=== PATIENT | male | born 1950 | race Caucasian/White ===

== ENCOUNTER → 2022-10-13 09:18 | Outpatient (CLI) | payer MEDICARE, SELFPAY ==
--- NOTE | ~2022-10-13 | MR_ITS ---
EXAMINATION: MR lumbar spine wo con DATE: 10/13/2022 09:55 INDICATION: Lumbar radiculopathy TECHNIQUE: Magnetic resonance imaging (MRI) of the lumbar spine was performed without intravenous con trast. Sequences included sagittal T2-weighted FSE, sagittal T2-weighted FS FSE, sagittal T1-weighted FSE, and axial T2-weighted FSE. COMPARISON: None FINDINGS: 17 degree lumbar dextroscoliosis. Sagittal alignment is normal. Vertebral body heights are normal. Mi ld disc height loss at T11-T12 and at the disc spaces between L1 through S1. Mild fibrovascular degen erative endplate changes at L5-S1. Marrow signal is otherwise normal. The conus medullaris terminates at L1. There is normal signal in the caudal spinal cord. Paravertebral soft tissues are unremarkable . The following disc levels are specifically discussed: T12-L1: The disc does not extend beyond the endplate margin. There is mild bilateral facet joint oste oarthritis. There is no neural foraminal stenosis. There is no central canal stenosis. L1-L2: Small bilateral foraminal zone disc protrusions. There is mild bilateral facet joint osteoarth ritis. There is mild bilateral neural foraminal stenosis. There is no central canal stenosis. L2-L3: Mild bilateral foraminal zone disc protrusions with annular fissure on the right. There is hyp ertrophy of the ligamentum flavum. There is mild to moderate bilateral facet joint osteoarthritis. Th ere is mild bilateral, left greater than right neural foraminal stenosis. There is mild central canal stenosis. L3-L4: Disc is mildly bulging. There is severe bilateral facet joint osteoarthritis with prominent hy pertrophic changes on the left. There is mild right and moderate left neural foraminal stenosis. Ther e is suggestion of possible prior left hemilaminotomy. There is mild central canal stenosis. L4-L5: Prominent diffuse disc bulge with annular fissures at the bilateral foraminal zones. There is hypertrophy of the ligamentum flavum. There is severe bilateral facet joint osteoarthritis. There is bilateral, left greater than right neural foraminal stenosis. There is moderate central canal stenos is. L5-S1: Disc is mildly bulging. There is severe bilateral facet joint osteoarthritis. There is moderat e left and moderate to severe right neural foraminal stenosis. There is no central canal stenosis. IMPRESSION: 1. 17 degrees lumbar dextroscoliosis with mild lower lumbar predominant spondylosis most notable for moderate central canal stenosis at L4-L5 and moderate to severe neural foraminal stenosis on the righ t at L5-S1. Reviewed, dictated and finalized at location A. IMPRESSION: 1. 17 degrees lumbar dextroscoliosis with mild lower lumbar predominant spondyl osis most notable for moderate central canal stenosis at L4-L5 and moderate to severe neural foraminal stenosis on the right at L5-S1.
== END ==
PROVIDERS: PCP Internal Medicine; Visit Provider Internal Medicine
DX: M47.26 Other spondylosis with radiculopathy, lumbar region (principal)
CPT/HCPCS: 72148

== ENCOUNTER 2024-05-18 00:54 | Day surgery (SDC) | payer MEDICARE, SELFPAY ==
[2024-05-10 14:04] VITALS: BMI 22.8
--- OUTSIDE RECORDS SUMMARY | 2024-05-18 00:57 | XMS_ITS | Referral Summary ---
Author Organization [facility] carol Address [address] [place] [address] Care Team Providers Care Hearing Officer Name Role Phone Job Melendez MD Primary Care Provider + Allergies Active Allergy Reactions Criticality Noted Date Comments Atorvastatin Mental status changes Low Memory recall issues Erythromycin Other (See comments) Reaction: Liver toxicity, , , Meperidine Nausea & Vomiting Low Sulfa (Sulfonamide Antibiotics) Sulfanilamide Hives,Rash Reaction: Hives, Skin Rash, Medications pen needle, diabetic (NOVOTWIST) 32 gauge x 1/5 needle use as directed 100 3 3 Active lancets (ONETOUCH DELICA LANCETS) 33 gauge misc test once daily 100 each 3 4 Active pravastatin (PRAVACHOL) 80 mg tablet take 1 tablet by oral route every day 90 3 4 Active Ca-D3-mag hh-pdch-rdo-justus -bor 600 mg calcium- 800 unit-50 mg tablet one by oral route twice a day 0 0 7 Active lancets misc Test sugars daily and as directed For use with AccuChek Compact Plus 100 1 0 Active omega 1-lcj-pii-fish oil 1,200 (144-216) mg capsule Take 1 capsule by mouth daily. Active TRULICITY 1.5 mg/0.5 mL pen injector INJECT 0.5ML SUBCUTABEOUS ONCE EVERY WEEK IN THE ABDOMEN, THIGH, OR UPPER ARM ROTATING INJECTION SITES 6 mL 11 7 Active Additional Information Patient taking differently: Takes on Wednesday evening, Reported on 01/18/2022 glimepiride (AMARYL) 4 mg tablet Take 1 tablet (4 mg total) by mouth daily before breakfast. 90 tablet 3 7 Active pregabalin (LYRICA) 100 mg capsule Take 1 capsule (100 mg total) by mouth 2 (two) times a day. 180 capsule 7 Active amitriptyline (ELAVIL) 25 mg tablet TAKE 1 TABLET BY MOUTH 1 TIME EVERY DAY 90 tablet 3 7 Active ONETOUCH ULTRA TEST strip TEST ONCE DAILY 100 each 7 Active amlodipine-olmes sacha (SHELIA) 10-20 mg per tablet Take 1 tablet by mouth daily Active aspirin 81 mg enteric coated tablet Take 81 mg by mouth nightly Active triamcinolone (NASACORT) 55 mcg nasal inhaler Administer 1 spray into each nostril 2 (two) times a day Active psyllium husk-calcium 1-60 gram-mg capsule Take 1 capsule by mouth as needed Active dapagliflozin (FARXIGA) 10 mg tablet Take 10 mg by mouth daily Active lidocaine (LMX) 4 % cream Apply 2.5 g (1 application total) topically 4 (four) times a day for 3 days 30 g 2 Active linaCLOtide (LINZESS) 145 mcg capsuleIndicatio ns:chronic idiopathic constipation Take 1 capsule (145 mcg total) by mouth daily before breakfast 30 capsule 3 2 Active polyethylene glycol (MIRALAX) 17 gram packetIndication s:constipation Take 2 packets (34 g total) by mouth daily 60 packet 2 2 Active levETIRAcetam (KEPPRA) 750 mg tablet Take 1 tablet (750 mg total) by mouth 2 (two) times a day 60 tablet 11 3 Active triamcinolone (KENALOG) 0.1 % creamIndications :skin rash Apply topically 2 (two) times a day Apply to itchy areas on trunk and legs. Do not apply to face 30 g 3 4 Active Active Problems Problem Noted Date Diagnosed Date Constipation, unspecified constipation type 01/08 Urinary retention 01/17/2022 Overview (01/19/2022): Added automatically from request for surgery [id number] Basal cell carcinoma (BCC) of forehead 8 Healthcare maintenance 09/01/2016 Medication management 09/01/2016 Right retinal detachment 09/01/2016 Cervical myelopathy with cervical radiculopathy 09/01/2016 Viral screening status 05/04/2016 Overview (07/03/2016): Need for hepatitis C screening test Chronic kidney disease 11/14/2013 Focal seizure 11/14/2013 Quadriplegia 08/22/2013 Overview (05/15/2016): QUADRIPLEGIA, UNSPECIFD Gastroesophageal reflux disease 06/24/2013 Overview (05/13/2016): ESOPHAGEAL REFLUX Benign hypertension 06/24/2013 Overview (05/13/2016): BENIGN HYPERTENSION Arteriosclerotic vascular disease 06/24/2013 Overview (05/14/2016): ASCVD Type 2 diabetes mellitus 06/24/2013 Overview (05/14/2016): DMII WO CMP NT ST UNCNTR Depression 06/24/2013 Overview (05/15/2016): DEPRESSIVE DISORDER NEC Benign neoplasm of large intestine 06/24/2013 Overview (05/15/2016): BENIGN NEOPLASM LG BOWEL Multiple-type hyperlipidemia 06/24/2013 Overview (05/15/2016): MIXED HYPERLIPIDEMIA Vitamin D deficiency 03/09/2012 Overview (05/13/2016): VITAMIN D DEFICIENCY NOS Sciatica 05/07/2011 Overview (05/13/2016): Sciatica of left side Resolved Problems Problem Noted Date Diagnosed Date Resolved Date Rhus dermatitis 09/15/2016 09/15/2016 Assessment & Plan (09/15/2016 10:20 AM CDT): Recommended tapering corticosteroids with prednisone for 12 days Patient was certainly advised he can continue to apply cortisone cream an kknv-oyx-vaioebd antihistamine, such as Benadryl, or Zyrtec during the day for alleviation of pruritus. Certainly if symptoms persist or worsen to follow up in our office regarding this condition Immunizations Immunization Administration Dates Next Due Hep A / Hep B 09/30/2015 Influenza, Quadrivalent, Spl it, Preservative Free, Intradermal 01/24/2015 Influenza, Split 12/19/2012, 2,01/15/2011,01/06 Influenza, Trivalent, High D ose, Split, Preservative Free, Intramuscular 10/14/2015 Influenza, Trivalent, IM (MDV) 11/29/2008,2007 Influenza, Trivalent, Recomb inant, Egg Free, Preservative Free, Antibiotic Free, IM (FLUBLOK) 12/08/2013 Pneumococcal Conjugate PCV 13 04/25/2015 Pneumococcal Polysaccharide PPV23 03/21/2012 Tdap 03/21/2012 ZOSTER LIVE 08/14/2011 Social History Tobacco Use Types Packs/Day Years Used Date Smoking Tobacco: Former Smokeless Tobacco: Never Tobacco Cessation:Counseling Given: No Alcohol Use Standard Drinks/Week Comments Yes 0 (1 standard drink = 0.6 oz pur e alcohol) AUDIT-C Answer Date Recorded Q1: How often do you have a drink containing alc ohol? Monthly or less 01/18/2022 Q2: How many drinks containi ng alcohol do you have on a typical day when you are drinking? 1 or 2 01/18/2022 Q3: How often do you have si x or more drinks on one occasion? Never 01/18/2022 PHQ-2 Answer Date Recorded PHQ-2 Total Score (If total score is 3 or more points, staff should administer the PHQ-9) 0 01/18/2022 Personal Safety Answer Date Recorded Have you ever been in or are you currently in a harmful physical or emotional relationship or is someone making you feel afraid or unsafe? Denies 10/23/2022 Sex and Gender Information Value Date Recorded Sex Assigned at Not on file Legal Sex Male 11:12 AM [facility]EL CAMER[facility] Gender Identity Male 09/25/2022 6:40 PM CDT Sexual Orientation Straight 09/25/2022 6: 40 PM CDT Last Filed Vital Signs Vital Sign Reading Time Taken Comments Blood Pressure 100/64 10/23/2022 9:00 PM CDT Pulse 72 10/23/2022 9:00 PM CDT Temperature 36.9 C (98.5 F) 10/23/2022 5:56 PM CDT Respiratory Rate 16 10/23/2022 9:00 PM CDT Oxygen Saturation 98% 10/23/2022 9:00 PM CDT Inhaled Oxygen Concentration - - Weight 90.7 kg (200 lb) 10/23/2022 5:56 PM CDT Height 180.3 cm (5' 11 ) 10/23/2022 5:56 PM CDT Body Mass Index 27.89 10/23/2022 5:56 PM CDT Plan of Treatment Not on file Procedures Procedure Name Priority Date/Time Associated Diagnosis Comments EGFR Routine 09/27/2023 7:10 AM CDT HEMOGLOBIN A1C Routine 09/27/2023 7:10 AM CDT LIPID PANEL Routine 09/27/2023 7:10 AM CDT ALBUMIN CREATININE RATIO, URINE Routine 09/27/2023 7:10 AM CDT PSA SCREEN Routine 08/27/2022 7:33 AM CDT FLEXIBLE SIGMOIDOSCOPY 2:[address] ABDOMEN PELVIS W CONTRAST ED 01/17/2022 10:52 PM [facility] RE[facility] CAMER[facility] COLONOSCOPY 08/18/2017 8:15 AM CDT DIABETES FOOT EXAM Routine 09/15/2016 DIABETES EYE EXAM Routine 07/17/2016 from Last 3 Months or Most Recently Relevant to Health Maintenance Results * (ABNORMAL) eGFR (09/27/2023 7:10 AM CDT) eGFR 58(L) >=60 mL/min/1. 73 m2 Comment: Interpretive Data Reference Interval Normal >/= 90 mL/min/1.73m2 Mildly decreased* 60 - 89 mL/min/1.73m2 Mildly to moderately decreased 45 - 59 mL/min/1.73m2 Moderately to severely decreased 30 - 44 mL/min/1.73m2 Severely decreased 15 - 29 mL/min/1.73m2 Kidney Failure < 15 mL/min/1.73m2 *Relative to young adult level Estimated glomerular filtration rate is determined by the 2020 CKD-EPI equation recommended by the National Kidney Foundation (A Unifying Approach to GFR Estimation: Recommendations of the NKF-ASK Task Force on Reassessing the Inclusion of Race in Diagnosing Kidney Disease, JASN 2020). The CKD-EPI equation should not be used for patients with unstable renal function and has not been validated in children and those over 70. Current interpretive data was last reviewed 2020. Blood 09/27/2023 7:10 AM CDT 09/27/2023 8:10 AM CDT us Job Melendez MD LAB BLOOD ORDERABLES Fin al Result [facility] 1 [facility] Department of Laboratories [place], [place] [id number] * Albumin Creatinine Ratio, Urine (09/27/2023 7:10 AM CDT) Albumin Ur 22.0 mg/L Comment: Interpretive Data No reference range established. Current interpretive data was last revised 2018. Testing performed by: [address] [place] [address] Creatinine Ur 139.1 mg/dL [facility] Comment: Interpretive Data No reference range established. Current interpretive data was last revised 2018. Testing performed by: [facility], [address] [place] [address]., [id number] Albumin Creatinine Ratio, Ur 16 1 - 29 mg/g [facility] Comment:Testing performed by : [facility], [address] [place] [address], [place]., [address] Urine 09/27/2023 7:10 AM CDT 09/27/2023 9:05 AM CDT Job Melendez MD LAB URINE ORDERABLES Fin al Result Performing Organization Address [facility] de Phone Number [facility] [address] [place] [address] * (ABNORMAL) Hemoglobin A1c (09/27/2023 7:10 AM CDT) Hgb A1C 6.1(H) 4.0 - 5.6 % Estimated Average Glucose 128 mg/dL [facility] Comment: The ADA recommends reporting an estimated Average Glucose (eAG) with all Hemoglobin A1c results using the equation derived from a study of 507 normal and diabetic adults. Minority populations were underrepresented and children were not included. (Diabetes Care 31:6300-5967, 2008). The eAG is not equivalent to a fasting glucose. Blood 09/27/2023 7:10 AM CDT 09/27/2023 8:10 AM CDT Job Melendez MD LAB BLOOD ORDERABLES Fin al Result Performing Organization Address [facility] de Phone Number [facility] [address] [place] [id number] * (ABNORMAL) Lipid panel (09/27/2023 7:10 AM CDT) Cholesterol 107 30 - 199 mg/dL Comment: Interpretive Data Ages < or = 19 years Acceptable: <170 mg/dL Borderline high: 170-199 mg/dL High: >or= 200 mg/dL Ages > or = 20 years Desirable: <200 mg/dL Borderline high: 200-239 mg/dL High: >or= 240 mg/dL Literature References: 1. Expert Panel on Integrated Guidelines for Cardiovascular Health and Risk Reduction in Children and Adolescents. Pediatrics 2011;128:S213 2. NCEP Expert Panel. Circulation 2004;110:227 Current Interpretive Data was last revised on 2017. Triglycerides 115 <=149 mg/dL [facility]) Comment: Interpretive Data Ages < or = 9 years Acceptable: <75 mg/dL Borderline high: 75-99 mg/dL High: >or= 100 mg/dL Ages 10 to 20 years Acceptable: <90 mg/dL Borderline high: 90-129 mg/dL High: >or= 130 mg/dL Ages > or = 20 years Desirable: <150 mg/dL Borderline high: 150-199 mg/dL High: 200-499 mg/dL Very high: >or= 499 mg/dL Literature References: 1. Expert Panel on Integrated Guidelines for Cardiovascular Health and Risk Reduction in Children and Adolescents. Pediatrics 2011;128:S213 2. NCEP Expert Panel. Circulation 2004;110:227 Current Interpretive Data was last revised on 2017. HDL 38(L) >=40 mg/dL [facility]) Comment: Interpretive Data Ages < or = 19 years Acceptable: >45 mg/dL Borderline low: 40-45 mg/dL Low: <40 mg/dL Ages > or = 20 years Desirable: >or= 60 mg/dL Low: <40 mg/dL Literature References: 1. Expert Panel on Integrated Guidelines for Cardiovascular Health and Risk Reduction in Children and Adolescents. Pediatrics 2011;128:S213 2. NCEP Expert Panel. Circulation 2004;110:227 Current Interpretive Data was last revised on 2017. LDL, calculated 46 <=129 mg/dL [facility]) Comment: Interpretive Data Ages < or = 19 years Acceptable: <110 mg/dL Borderline high: 110-129 mg/dL High: >or= 130 mg/dL Ages > or = 20 years Optimal: <100 mg/dL Near optimal: 100-129 mg/dL Borderline high: 130-159 mg/dL High: >160 mg/dL Literature References: 1. Expert Panel on Integrated Guidelines for Cardiovascular Health and Risk Reduction in Children and Adolescents. Pediatrics 2011;128:S213 2. NCEP Expert Panel. Circulation 2003;110:227 Current Interpretive Data was last revised on 2017. Non-HDL Cholesterol 69 mg/dL [facility] Comment: Interpretive Data Ages < or = 19 years Acceptable: <120 mg/dL Borderline high: 120-144 mg/dL High: >145 mg/dL Ages > or = 20 years When triglycerides are >200 mg/dL, Non-HDL cholesterol is a secondary target of therapy with treatment goals that are 30 mg/dL greater than the LDL cholesterol target. Literature References: 1. Expert Panel on Integrated Guidelines for Cardiovascular Health and Risk Reduction in Children and Adolescents. Pediatrics 2011;128:S213 2. NCEP Expert Panel. Circulation 2004;110:227 Current Interpretive Data was last revised on 2017. Chol/HDL ratio 3 [facility]) Blood 09/27/2023 7:10 AM CDT 09/27/2023 8:10 AM CDT us Job Melendez MD LAB BLOOD ORDERABLES Fin al Result Performing Organization Address [facility] Co de Phone Number [facility] 1 [facility] [place] [address] * PSA screen (08/27/2022 7:33 AM CDT) PSA-Total 0.97 <=6.20 ng/mL [facility]) Comment: Interpretive Data AGE SEX REFERENCE INTERVAL 0 minutes-150 years Female None 0 minutes-49 years Male None 50-59 years Male 0-3.90 60-69 years Male 0-5.40 70-79 years Male 0-6.20 80-150 years Male 0-6.20 The [employer] PSA Total assay procedure was used. Results from different manufacturers or methods may not be comparable. Serial testing should be performed using the same method. Current interpretive data last revised 21. Blood 08/27/2022 7:33 AM CDT 08/27/2022 8:33 AM CDT us Job Melendez MD LAB BLOOD ORDERABLES Fin al Result Performing Organization Address [facility] Co de Phone Number [facility] 1 [facility] [place] [address] * FLEXIBLE SIGMOIDOSCOPY (01/21/2022 2:26 PM NEWS REEL CAMER[facility]) Anatomical Region Laterality Modality Other Narrative Procedure Note Arabella Malave MD - 01/21/2022 2:26 PM CST [facility] Patient Name: Zack Tim Procedure Date: 01/21/2022 2:26 PM Date of : 1950 Admit Type: Inpatient Age: 71 Gender: Male Attending MD: Arabella Malave M.D. Room: [facility] ENDOSCOPY ROOM 1 Note Status: Finalized Patient Profile: This is a 71 year old male. Patient complains of rectal pain and constipation. He has fecal disimpaction couple days ago but continued to have symptoms and constipation Procedure: Flexible Sigmoidoscopy Indications: Rectal pain, Fecal impaction Referring MD: Job Melendez M.D. Providers: Arabella Malave M.D. Impression: - Fecal impaction. Manual disimpaction performed. - Multiple ulcers in the rectum. - No specimens collected. Recommendation: - Continue present medications. Linzess 290 micro g daily. MiraLax 3-4 times daily. Start Reglan before meals. Dulcolax suppository every night andglycerin suppository every morning. - the clerical dentist assistant symptoms commode with foot steps to help and squatting position and emptying. Medicines: Monitored Anesthesia Care Complications: No immediate complications. Estimated Blood Loss: Estimated blood loss: none. Procedure: Pre-Anesthesia Assessment: - Prior to the procedure, a History and Physicalwas performed, and patient medications and allergieswere reviewed. The patient's tolerance of previous anesthesia was also reviewed. The risks andbenefits of the procedure and the sedation options and risks were discussed with the patient. All questions were answered, and informed consent was obtained. Prior Anticoagulants: The patient has taken noanticoagulant or antiplatelet agents. ASA Grade Assessment: III -A patient with severe systemic disease. Afterreviewing the risks and benefits, the patient was deemed in satisfactory condition to undergo the procedure. The benefits, risks, and alternatives to theprocedure and sedation were discussed and informed consentwas obtained. The Endoscope [id number] was introduced through the anus and advanced to the the sigmoid colon. The flexible sigmoidoscopy was accomplished without difficulty. The patienttolerated the procedure well. The quality of the bowel preparation was inadequate. Findings: Rectal exam noted with multiple pieces of large hard stool in therectum that removed manually and disimpacted the digitally. The scope introduced to the rectum. The rectum was empty as well as the rectal sigmoid angle but fecal impaction again noted with hard stool in the sigmoid colon. Multiple deep crater benign-appearing ulcers werefound in the rectum. No bleeding was present. No stigmata of recentbleeding were seen. Electronically signed by Arabella Malave M.D. Arabella Malave M.D. 01/21/2022 3:50:05 PM Number of Addenda: 0 Note Initiated On: 01/21/2022 2:26 PM Procedure Code(s): --- Professional --- 97431, Sigmoidoscopy, flexible; diagnostic, including collection of specimen(s) by brushing or washing, when performed (separateprocedure) Diagnosis Code(s): --- Professional --- K62.6, Ulcer of anus and rectum K62.89, Other specified diseases of anus and rectum K56.41, Fecal impaction CPT copyright 2020 [employer]. All rights reserved. The codes documented in this report are preliminary and upon refrigeration person reviewmay be revised to meet current compliance requirements. Recognized by the [employer] for promoting quality in endoscopy Arabella Malave MD ENDOSCOPY PROCEDURES Final Result * CT Abdomen Pelvis W Contrast (01/17/2022 10:52 PM NEWS REEL CAMERAMAN) Anatomical Region Laterality Modality Body N/A Computed Tomogra phy 01/17/2022 10:5 6 PM [facility] Narrative 01/17/2022 11:02 PM [facility] RE[facility] CAM[facility] EXAM DESCRIPTION: CT ABDOMEN PELVIS W CONTRAST REASON FOR STUDY: 71-year-old male former smoker with a h/o GERD, HTN, HLD, DM, depression, intestinal cancer, quadriplegia, TIA, CKD, and focal seizure who arrived via EMS with constipation since a few days [employer]. Patient reports associated symptoms of rectal bleeding, lower abdominal pain, and abdominal distension. Denies fever, nausea, vomiting, cough, and chills. TECHNIQUE: CT scan of the abdomen and pelvis performed with intravenous and without oral contrast using helical scanning technique with dynamic intravenous contrast injection. Reconstructed coronal and sagittal MPR images reviewed. All images stored on PACS. Automated exposure control was used as a dose optimization technique for this examination. CONTRAST TYPE/DOSE: 100 mL Optiray 350 COMPARISON: None available. FINDINGS: LOWER CHEST: No significant pulmonary abnormalities. No effusion. LIVER: Normal size with mild steatosis. No identified cystic or solid masses. GALLBLADDER: No stones identified. No wall thickening or inflammatory changes. BILE DUCTS: No intrahepatic or extrahepatic ductal dilatation. SPLEEN: Normal size. No focal lesions. PANCREAS: No identified cystic or solid masses. No significant calcifications. No adjacent inflammation or peripancreatic fluid collections. Pancreatic duct is not dilated. ADRENALS: Normal. KIDNEYS/URINARY TRACT: No identified significant cystic or solid masses. No visualized stones. Mild bilateral hydroureteronephrosis to the bladder. Symmetric enhancement. Urinary bladder is mildly distended. GI: No dilated bowel loops. No obvious wall thickening. Normal appendix. No significant diverticular disease. Moderate amount of dense, compact stool is seen in the rectum, with small to moderate amount of stool seen in the upstream colon. PERITONEUM: No ascites or free air. RETROPERITONEUM: No mass or adenopathy. REPRODUCTIVE: No significant abnormality. VASCULATURE: Minimal aortoiliac atherosclerotic calcifications. No abdominal aortic aneurysm. MUSCULOSKELETAL: No significant abnormality. Minimal dextroscoliosis of the lumbar spine noted with minimal degenerative vacuum disc at L5/S1. OTHER: No other abnormality. IMPRESSION: 1. Moderate amount of dense, compact stool in the rectum with small to moderate stool burden in the upstream colon. No bowel obstruction. 2. Bladder distension with associated mild bilateral hydroureteronephrosis. If patient can not void spontaneously, consider Browne decompression. 3. Mild hepatic steatosis. THIS IS AN ELECTRONICALLY VERIFIED FINAL REPORT 01/17/2022 11:02 PM - Electronically signed by Dada Pantoja M.D. ML: ML Report ID: [id number] Reading Location: [id number] Procedure Note Dada Pantoja MD - 01/17/2022 EXAM DESCRIPTION: CT ABDOMEN PELVIS W CONTRAST REASON FOR STUDY: 71-year-old male former smoker with a h/o GERD, HTN,HLD, DM, depression, intestinal cancer, quadriplegia, TIA, CKD, and focalseizure who arrived via EMS with constipation since a few days [employer]. Patientreports associated symptoms of rectal bleeding, lower abdominal pain, andabdominal distension. Denies fever, nausea, vomiting, cough, and chills. TECHNIQUE: CT scan of the abdomen and pelvis performed with intravenousand without oral contrast using helical scanning technique with dynamic intravenous contrast injection. Reconstructed coronal and sagittal MPRimages reviewed. All images stored on PACS. Automated exposure control was usedas a dose optimization technique for this examination. CONTRAST TYPE/DOSE: 100 mL Optiray 350 COMPARISON: None available. FINDINGS: LOWER CHEST: No significant pulmonary abnormalities. No effusion. LIVER: Normal size with mild steatosis. No identified cystic or solid masses. GALLBLADDER: No stones identified. No wall thickening or inflammatory changes. BILE DUCTS: No intrahepatic or extrahepatic ductal dilatation. SPLEEN: Normal size. No focal lesions. PANCREAS: No identified cystic or solid masses. No significant calcifications. No adjacent inflammation or peripancreatic fluidcollections. Pancreatic duct is not dilated. ADRENALS: Normal. KIDNEYS/URINARY TRACT: No identified significant cystic or solid masses.No visualized stones. Mild bilateral hydroureteronephrosis to the bladder. Symmetric enhancement. Urinary bladder is mildly distended. GI: No dilated bowel loops. No obvious wall thickening. Normalappendix. No significant diverticular disease. Moderate amount of dense, compactstool is seen in the rectum, with small to moderate amount of stool seen in the upstream colon. PERITONEUM: No ascites or free air. RETROPERITONEUM: No mass or adenopathy. REPRODUCTIVE: No significant abnormality. VASCULATURE: Minimal aortoiliac atherosclerotic calcifications. No abdominal aortic aneurysm. MUSCULOSKELETAL: No significant abnormality. Minimal dextroscoliosisof the lumbar spine noted with minimal degenerative vacuum disc at L5/S1. OTHER: No other abnormality. IMPRESSION: 1. Moderate amount of dense, compact stool in the rectum with small to moderate stool burden in the upstream colon. No bowel obstruction. 2. Bladder distension with associated mild bilateralhydroureteronephrosis. If patient can not void spontaneously, consider Browne decompression. 3. Mild hepatic steatosis. THIS IS AN ELECTRONICALLY VERIFIED FINAL REPORT 01/17/2022 11:02 PM - Electronically signed by Dada Pantoja M.D. ML: ML Report ID: [id number] Reading Location: [id number] us Laurie Grullon MD IMG CT PROCEDURES Final Re sult * COLONOSCOPY (08/18/2017 8:15 AM CDT) Anatomical Region Laterality Modality Other Narrative Procedure Note Arabella Malave MD - 08/18/2017 8:15 AM CDT [facility] Patient Name: Zack Tim Procedure Date: 08/18/2017 8:15 AM Date of : 1950 Admit Type: Outpatient Age: 67 Gender: Male Attending MD: Arabella Malave MD Room: [facility] ENDOSCOPY ROOM 2 Note Status: Finalized Patient Profile: 67 WM, h/o adenom apolyps in 2007, no family h/ocolon cancer. Procedure: Colonoscopy Indications: High risk colon cancer surveillance: Personalhistory of colonic polyps, Last colonoscopy: May 2012 Referring MD: Job Melendez MD Providers: Arabella Malave MD Impression: - Preparation of the colon was fair. - No polyps noted. - Small internal hemorrhoids. - No specimens collected. Recommendation: - Discharge patient to home. - Continue present medications. - [facility] Medicines: Monitored Anesthesia Care Complications: No immediate complications. Estimated Blood Loss: Estimated blood loss: none. Procedure: Pre-Anesthesia Assessment: - Prior to the procedure, a History and Physical was performed, and patient medications and allergieswere reviewed. The patient's tolerance of previous anesthesia was also reviewed. The risks and benefitsof the procedure and the sedation options and riskswere discussed with the patient. All questions were answered, and informed consent was obtained. Prior Anticoagulants: The patient has taken no previous anticoagulant or antiplatelet agents. ASA Grade Assessment: II - A patient with mild systemicdisease. After reviewing the risks and benefits, the patientwas deemed in satisfactory condition to undergo the procedure. The benefits, risks and alternatives of theprocedure and sedation were discussed and informed consent was obtained. All questions were answered. Please referto the signed informed consent document in the medical record. The scope was passed under direct vision.The Pediatric Colonoscope PCF-H190L [id number] was introduced through the anus and advanced to the the cecum, identified by appendiceal orifice andileocecal valve. The colonoscopy was performed without difficulty. The patient tolerated the procedurewell. The quality of the bowel preparation was fair. Findings: The perianal and digital rectal examinations were normal. The cecum appeared normal. thick liquid stool was encountered in mnay areas of the colon.extensive washing and aspiration applied still small polyps can be missed. The visualized colon overall was within normal. No polyps noted. retroflexion in the colon showed small hemorrhoids. Electronically signed by Arabella Malave M.D. Arabella Malave MD 08/18/2017 9:33:53 AM Number of Addenda: 0 Note Initiated On: 08/18/2017 8:15 AM Procedure Code(s): --- Professional --- G0105, Colorectal cancer screening; colonoscopy on individual at high risk Diagnosis Code(s): --- Professional --- Z86.010, Personal history of colonic polyps CPT copyright 2017 [employer]. All rights reserved. The codes documented in this report are preliminary and upon refrigeration person reviewmay be revised to meet current compliance requirements. Recognized by the [employer] for promoting quality in endoscopy Arabella Malave MD ENDOSCOPY PROCEDURES Final Result * DIABETES FOOT EXAM (09/15/2016) Diabetic Foot Exam Normal [facility] Provider HEALTH MAINTENANCE Final Result * DIABETES EYE EXAM (07/17/2016) Diabetic Eye Exam Unknown us Historical Provider HEALTH MAINTENANCE Final Result from Last 3 Months or Most Recently Relevant to Health Maintenance Insurance [facility] [employer] MEDICARE ADVANTAGE Advance Directives For more information, please contact: [phone] * Full Code (Latest Code Status on File) Date Activated Date Inactivated Comments 01/21/2022 2:20 PM 01/26/2022 5:20 PM * Full Code Date Activated Date Inactivated Comments 01/19/2022 3:44 PM 01/21/2022 2:20 PM * Full Code Date Activated Date Inactivated Comments 01/18/2022 3:15 AM 01/19/2022 3:43 PM * Full Code Date Activated Date Inactivated Comments 08/18/2017 7:54 AM 08/18/2017 12:19 PM Care Teams Hearing Officer Relationship Specialty Start Date End Date Job Melendez MD [address] [place] [address] PCP - General 05/08/16
--- OUTSIDE RECORDS SUMMARY | 2024-05-18 00:57 | XMS_ITS | Clinical Summary ---
Author Organization [facility] carol Address [address] [place] [address] Care Team Providers Care Uppers Edge Burnisher Name Role Phone Job Melendez MD Primary [...] every day 90 3 4 Active Ca-D3-mag nl-pybf-bxa-justus -bor 600 mg calcium- 800 unit-50 mg tablet one by oral route twice a day 0 0 7 Active lancets misc Test sugars daily and as directed For use with AccuChek Compact Plus 100 1 0 Active omega 9-akc-oro-fish oil 1,200 (144-216) mg capsule Take 1 [...] (01/19/2022): Added automatically from request for surgery [id number] Basal cell carcinoma (BCC) of forehead 8 [...] can continue to apply cortisone cream an vmql-dhk-tkuqklb antihistamine, such as Benadryl, or Zyrtec during [...] PPV23 03/21/2012 Tdap 03/21/2012 ZOSTER LIVE 08/14/2011 Surgical History Surgery Date Site/Laterality Comments OTHER SURGICAL HISTORY cervical quadriplegia: cervical disc/fusion CARPAL TUNNEL RELEASE 02/09/2008 - 02/07/2009 Right Carpal tunnel release RETINAL DETACHMENT SURGERY 06/09/2016 Right COLONOSCOPY 05/20/2012 Medical History Medical History Date Comments Hx Other Medical cervical chapito plegia Hx Other Medical fatty liver Hx Other Medical ?TIA, transient global amnesia Hx Other Medical 01-opth Hx Other Medical 2008 carpal tunnel r epait Hypertension Hypertension Type 2 diabetes mellitus (HCC) D iabetes type 2 Hyperlipidemia Hyperlipidemia Hypercholesterolemia high choles terol Hx Other Medical neuropathy Hx Other Medical 1992 cervical, fused 6-7 Hx Other Medical 1992 cervical, remov al of spurs Diabetes mellitus (HCC) Diabetes Hx Other Medical 05/25/2011 Back surgery Hx Other Medical 05/14/2012 ER visit for di arrhea Hx Other Medical 10/14/2012 CTR and Ulnar n erve release; Laterality: right Hx Other Medical 2012 scar tissue rem ralph Hx Other Medical 2013 cateract surg Hx Other Medical cataract surger y right eye Hx Other Medical [facility] ER syncope Hx Other Medical 2007 cervical 2-6; C shanna: DONOVAN 11/22/2015 -complicated by surgical instrument dropped and hit spinal cord, subsequent R sided hemiplegia. Persistent numbness and weakness R arm and leg. Medication monitoring encounter History of cervical spinal surgery 6-7 tied together with titanium and rods. Chronic constipation Family History Medical History Relation Name Comments Diabetes Father Diabetes mellit us; Stroke Father Stroke; Diabetes Mother Diabetes mellit us; Cancer Other 1 Family history of Cancer; Diabetes Other 2 Family history of Diabetes mellitus; Heart disease Other 3 Family history of Heart disease; Hypertension Other 4 Family history of Hypertension; Osteoarthritis Other 5 Family histor y of Osteoarthritis; Stroke Other 6 Family history of stroke; Diabetes Sister Diabetes mellit us; Relation Name Status Comments Father Mother Other 1 Other 2 Other 3 Other 4 Other 5 Other 6 Sister Social History Tobacco Use Types Packs/Day Years [...] on file Legal Sex Male 11:12 AM LEPIDOPTERIST Gender Identity Male 09/25/2022 6:40 PM CDT Sexual Orientation Straight 09/25/2022 6: 40 PM CDT Obstetrics History Last Filed Vital Signs Vital Sign Reading [...] 10/23/2022 5:56 PM CDT Plan of Treatment Health Maintenance Due Date Last Done Comments Hepatitis C Screening 1950 Well Visit 65+ 2015 Dilated Eye Exam 07/17/2017 07/17/2016 Foot Exam 09/15/2017 09/15/2016, 08/09, 05/20/2016 Pneumococcal vaccine 65+ (3 of 3 - PCV20 or PCV21) 04/24/2020 04/25/2015, 03/21/2012 DTaP/Tdap/Td Vaccine (2 - Td or Tdap) 03/21/2022 03/21/2012 Colon Cancer Screening-Colonoscopy 08/18/2022 08/18/2017, 05/20/2012, 05/20/2012 Depression Screening 01/17/2023 01/17/2022, 09/30/2016, 09/15/2016, Additional history exists Fall Risk Assessment 01/26/2023 01/26/2022 Covid-19 Vaccine (2023-2 5 season) 2023 11/18/2021, 05/27/2021, 12/03/2020 Hemoglobin A1C 03/29/2024 09/27/2023, 2 , 03/29/2023, Additional history exists Prostate Cancer Screening-PSA 08/27/2024 08/27/2022 Albumin Creatinine Ratio, Urine 09/26/2024 09/27/2023, 06/28/2023, 03/29/2023, Additional history exists Lipid Panel 09/26/2024 09/27/2023, 2 , 03/29/2023, Additional history exists eGFR 09/26/2024 09/27/2023, 06/09, 03/29/2023, Additional history exists Influenza Vaccine (Season Ended) 2024 11/19/2021, 10/07/2020, 12/15/2019, Additional history exists Hepatitis B Screening Completed 09/30/2015 Zoster Vaccine Completed 06/11/2020, 07/2019, 08/14/2011 Abdominal Aortic Aneurysm (A AA) Screen Completed 01/17/2022 Colon Cancer Screening-CT Colonography Discontinued 01/21/2022, 08/18/2017, 05/20/2012, Additional history exists Colon Cancer Screening-DNA Stool Discontinued 01/21/2022, 08/18/2017, 05/20/2012, Additional history exists Colon Cancer Screening-FIT Discontinued 01/21, 08/18/2017, 05/20/2012, Additional history exists Colon Cancer Screening-Sigmoidoscopy Discontinued 01/21/2022, 08/18/2017, 05/20/2012, Additional history exists Procedures Procedure Name Priority Date/Time Associated Diagnosis Comments EGFR Routine 09/27/2023 7:10 AM CDT HEMOGLOBIN A1C Routine 09/27/2023 7:10 AM CDT LIPID PANEL Routine 09/27/2023 7:10 AM CDT ALBUMIN CREATININE RATIO, URINE Routine 09/27/2023 7:10 AM CDT PSA SCREEN Routine 08/27/2022 7:33 AM CDT FLEXIBLE SIGMOIDOSCOPY 2:[address] ABDOMEN PELVIS W CONTRAST ED 01/17/2022 10:52 PM LEPIDOPTERIST COLONOSCOPY 08/18/2017 8:15 AM CDT DIABETES FOOT [...] LAB BLOOD ORDERABLES Fin al Result DONALD GARCIA ([place]) [address] [facility] [place] [address] * Albumin Creatinine Ratio, Urine (09/27/2023 7:10 AM CDT) Albumin Ur 22.0 mg/L Comment: Interpretive Data No reference range established. Current interpretive data was last revised 2018. Testing performed by: [facility], [address] [place] [address], [place]., [address] Creatinine Ur 139.1 mg/dL DONALD GARCIA ([place]) Comment: Interpretive Data No reference range established. Current interpretive data was last revised 2018. Testing performed by: [facility], [address] [place] [address]., [address] Albumin Creatinine Ratio, Ur 16 1 - 29 mg/g DONALD GARCIA ([place]) Comment:Testing performed by : [facility], [address] [place] [address], [place]., [address] Urine 09/27/2023 7:10 AM CDT 09/27/2023 9:05 AM CDT Job Melendez MD LAB URINE ORDERABLES Fin al Result Performing Organization Address [facility] de Phone Number DONALD GARCIA ([place]) [address] [place] [address] [email or web address] [address] * (ABNORMAL) Hemoglobin A1c (09/27/2023 7:10 AM CDT) Hgb A1C 6.1(H) 4.0 - 5.6 % Estimated Average Glucose 128 mg/dL BEREKETEMILIANO GACRIA ([place]) Comment: The ADA recommends reporting an estimated Average Glucose (eAG) with all Hemoglobin A1c results using the equation derived from a study of 507 normal and diabetic adults. Minority populations were underrepresented and children were not included. (Diabetes Care 31:0821-7441, 2008). The eAG is not equivalent to a fasting glucose. Blood 09/27/2023 7:10 AM CDT 09/27/2023 8:10 AM CDT Job Melendez MD LAB BLOOD ORDERABLES Fin al Result Performing Organization Address [facility] de Phone Number DONALD GARCIA ([place]) [address] [place] [id number] * (ABNORMAL) Lipid panel (09/27/2023 7:10 AM [...] on 2017. HDL 38(L) >=40 mg/dL DONALD Raygoza ([place]) Comment: Interpretive Data Ages < or [...] on 2017. Chol/HDL ratio 3 ADEBAYO GARCIA ([place]) Blood 09/27/2023 7:10 AM CDT 09/27/2023 8:10 AM CDT Job Melendez MD LAB BLOOD ORDERABLES Fin al Result Performing Organization Address [facility] de Phone Number DONALD [facility] ([place]) [address] [facility] [place] [address] * PSA screen (08/27/2022 7:33 AM CDT) PSA-Total 0.97 <=6.20 ng/mL DONALD GARCIA ([place]) Comment: Interpretive Data AGE SEX REFERENCE INTERVAL [...] 7:33 AM CDT 08/27/2022 8:33 AM CDT Job Melendez MD LAB BLOOD ORDERABLES Fin al Result Performing Organization Address [facility] Co de Phone Number BEREKETEMILIANO [facility] ([place]) [address] [facility] [place] [address] * FLEXIBLE SIGMOIDOSCOPY (01/21/2022 2:26 PM LEPIDOPTERIST) Anatomical Region Laterality Modality Other Narrative Procedure Note Arabella Malave MD - 01/21/2022 2:26 PM CST [facility] Patient Name: Zack Ángel Procedure Date: 01/21/2022 2:26 PM Date of : 1950 Admit Type: Inpatient Age: 71 Gender: Male Attending MD: Arabella Malave M.D. Room: [facility] ENDOSCOPY ROOM 1 Note Status: Finalized Patient [...] night andglycerin suppository every morning. - the specimen preparation assistant symptoms commode with foot steps to [...] and informed consentwas obtained. The Endoscope GIF-H190 [id number] was introduced through the anus and advanced [...] 2:26 PM Procedure Code(s): --- Professional --- 07727, Sigmoidoscopy, flexible; diagnostic, including collection of specimen(s) by brushing or washing, when performed (separateprocedure) Diagnosis Code(s): --- Professional --- K62.6, Ulcer of anus and rectum K62.89, Other specified diseases of anus and rectum K56.41, Fecal impaction CPT copyright 2020 [employer]. All rights reserved. The codes documented in this report are preliminary and upon pilot control operator reviewmay be revised to meet current compliance requirements. Recognized by the [employer] for promoting quality in endoscopy Arabella Malave MD ENDOSCOPY PROCEDURES Final Result * CT Abdomen Pelvis W Contrast (01/17/2022 10:52 PM LEPIDOPTERIST) Anatomical Region Laterality Modality Body N/A Computed Tomogra phy 01/17/2022 10:5 6 PM LEPIDOPTERIST Narrative 01/17/2022 11:02 PM LEPIDOPTERIST EXAM DESCRIPTION: CT ABDOMEN PELVIS W CONTRAST REASON FOR STUDY: 71-year-old male former smoker with a h/o GERD, HTN, HLD, DM, depression, intestinal cancer, quadriplegia, TIA, CKD, and focal seizure who arrived via EMS with constipation since a few days COMPLIANCE MGR. Patient reports associated symptoms of rectal bleeding, [...] Dada Pantoja M.D. ML: ML Report ID: [id number] Reading Location: [id number] Procedure Note Dada Pantoja MD - 01/17/2022 EXAM DESCRIPTION: CT ABDOMEN PELVIS W CONTRAST REASON FOR STUDY: 71-year-old male former smoker with a h/o GERD, HTN,HLD, DM, depression, intestinal cancer, quadriplegia, TIA, CKD, and focalseizure who arrived via EMS with constipation since a few days COMPLIANCE MGR. Patientreports associated symptoms of rectal bleeding, lower [...] Dada Pantoja M.D. ML: ML Report ID: [id number] Reading Location: [place] [address] Laurie Grullon MD IMG CT PROCEDURES Final Re sult * COLONOSCOPY (08/18/2017 8:15 AM CDT) Anatomical Region Laterality Modality Other Narrative Procedure Note Arabella Malave MD - 08/18/2017 8:15 AM CDT [facility] Patient Name: Zakc Tim Procedure Date: 08/18/2017 8:15 AM Date of : 1950 Admit Type: Outpatient Age: 67 Gender: Male Attending MD: Arabella Malave MD Room: [facility] ENDOSCOPY ROOM 2 Note Status: Finalized Patient [...] [facility] Medicines: Monitored Anesthesia Care Complications: No immediate [...] passed under direct vision.The Pediatric Colonoscope PCF-H190L [id number] was introduced through the anus and advanced [...] history of colonic polyps CPT copyright 2017 [employer]. All rights reserved. The codes documented in this report are preliminary and upon pilot control operator reviewmay be revised to meet current compliance requirements. Recognized by the [employer] for promoting quality in endoscopy Arabella Malave MD ENDOSCOPY PROCEDURES Final Result * DIABETES FOOT EXAM (09/15/2016) Diabetic Foot Exam Normal Historical Provider HEALTH MAINTENANCE Final Result * DIABETES EYE EXAM (07/17/2016) Diabetic Eye Exam Unknown Historical Provider HEALTH MAINTENANCE Final Result from Last 3 Months or Most Recently Relevant to Health Maintenance Insurance [facility] MEDICARE ADVANTAGE [employer] MEDICARE ADVANTAGE [place] [id number] UHC MEDICARE ADVANTAGE Advance Directives For more information, please contact: [phone] * Full Code (Latest Code Status on File) Date Activated Date Inactivated Comments 01/21/2022 2:20 PM 01/26/2022 5:20 PM * Full Code Date Activated Date Inactivated Comments 01/19/2022 3:44 PM 01/21/2022 2:20 PM * Full Code Date Activated Date Inactivated Comments 01/18/2022 3:15 AM 01/19/2022 3:43 PM * Full Code Date Activated Date Inactivated Comments 08/18/2017 7:54 AM 08/18/2017 12:19 PM Care Teams Uppers Edge Burnisher Relationship Specialty Start Date End Date Job Melendez MD [address] [address] PCP - General 05/08/16
[2024-05-18 07:46] VITALS: BP 136/74; PULSE 60; RESP 20; TEMP 36.4; O2SAT 100; BMI 23.6
[2024-05-18] MEDS: LACTATED RINGERS 1,000 ML 150 ML IV CONT (07:49)
--- NOTE | 2024-05-18 08:02 | P.PNAN_ITS ---
Anes - Initial Pre Proc Eval Procedure: Operation Date: 05/18/24 08:30 Proposed Procedures p Colonoscopy - Andres Pretty MD Date/Time: 05/18/24 08:02 Surgeon: Andres Pretty MD Pre Op Diagnosis: hx of colon polyps Patient Data Age: 74 Gender: M Height: 1.8 m Weight: 76.9 kg Last Vital Signs Temp 97.5 F L 05/18/24 07:46 Pulse 60 05/18/24 07:46 Resp 20 05/18/24 07:46 BP 136/74 05/18/24 07:46 Pulse Ox 100 05/18/24 07:46 O2 Del Method Room Air 05/18/24 07:46 Allergies Allergy/AdvReac Type Severity Reaction Status Date / Time azithromycin Allergy Intermediate kidney Verified 05/18/24 07:44 issues Sulfa (Sulfonamide AdvReac Severe Swelling Verified 05/18/24 07:44 Antibiotics) Home Medications ?Medication ?Instructions ?Recorded ?Confirmed ?Type amlodipine 10 mg tablet 10 mg PO DAILY 05/10/24 05/18/24 History aspirin 81 mg tablet,delayed 81 mg PO DAILY 05/10/24 05/18/24 History release (Adult Aspirin Regimen) dapagliflozin propanediol 10 mg 10 mg PO DAILY 05/10/24 05/18/24 History tablet (Farxiga) fludrocortisone 0.1 mg tablet 0.1 mg PO DAILY 05/10/24 05/18/24 History glipizide 5 mg tablet 5 mg PO DAILY 05/10/24 05/18/24 History levetiracetam 1,000 mg tablet 1,000 mg PO BID 05/10/24 05/18/24 History (Keppra) linaclotide 72 mcg capsule 72 mcg PO DAILY 05/10/24 05/18/24 History (Linzess) metformin 1,000 mg tablet,extended 1,000 mg PO QPM 05/10/24 05/18/24 History release 24hr (osmotic) (Fortamet) pravastatin 80 mg tablet 80 mg PO HS 05/10/24 05/18/24 History pregabalin 100 mg capsule (Lyrica) 100 mg PO BID 05/10/24 05/18/24 History tirzepatide 10 mg/0.5 mL 10 mg subcut WEEKLY 05/10/24 05/18/24 History subcutaneous pen injector (Christina) Patient hx anesthesia problems: none Family hx anesthesia problems: none Results Review: All pre-operative results and documents have been reviewed as part of the pre- operative evaluation. [facility] Social History Social History Years smoked: 7 Smoking status: Former smoker Alcohol intake: never Substance use: never Living arrangements: with friend(s) Spiritual care concerns: No Anes - Eval Final PreProcedure Day of Procedure 05/18/24 08:02 Patient weight: normal Heart: regular rate and rhythm Lungs: clear to auscultation Airway: Mallampati scale class II Neurological: alert and oriented Last oral intake: >/= 8 hours ASA classification: III Emergent: no Anesthetic plan: proceed Anesthesia type and monitoring: general GIVS and standard monitoring Results Review: All pre-operative results and documents have been reviewed as part of the pre- operative evaluation. Informed Consent: The patient's anesthetic plan and its attendant risks and benefits were discussed with the patient/family/POA. Questions were solicited and answers provided to the satisfaction of the patient/family/POA.
[2024-05-18 08:04] LABS: Glucose Point of Care 79 mg/dl (65-105)
--- NOTE | 2024-05-18 08:15 | PM.HPGS ---
History of Present Illness History of Present Illness Consent: Risks, benefits, and alternatives have been discussed and questions answered. Patient agrees to proceed with procedure. Chief complaint: hx of colon polyps Narrative: Zack Tim is a 74 year old male with colon polyp 6 years ago Review of Systems Review of Systems: All systems reviewed & are unremarkable except as noted in HPI and below PMFSH Past Medical History Medical History (Updated 05/18/24 @ 08:16 by Andres Pretty MD) Colon polyp Social History Social History Years smoked: 7 Smoking status: Former smoker Alcohol intake: never Substance use: never Living arrangements: with friend(s) Spiritual care concerns: No Meds Home Medications and Allergies Home Medications ?Medication ?Instructions ?Recorded ?Confirmed ?Type amlodipine 10 mg tablet 10 mg PO DAILY 05/10/24 05/18/24 History aspirin 81 mg tablet,delayed 81 mg PO DAILY 05/10/24 05/18/24 History release (Adult Aspirin Regimen) dapagliflozin propanediol 10 mg 10 mg PO DAILY 05/10/24 05/18/24 History tablet (Farxiga) fludrocortisone 0.1 mg tablet 0.1 mg PO DAILY 05/10/24 05/18/24 History glipizide 5 mg tablet 5 mg PO DAILY 05/10/24 05/18/24 History levetiracetam 1,000 mg tablet 1,000 mg PO BID 05/10/24 05/18/24 History (Keppra) linaclotide 72 mcg capsule 72 mcg PO DAILY 05/10/24 05/18/24 History (Linzess) metformin 1,000 mg tablet,extended 1,000 mg PO QPM 05/10/24 05/18/24 History release 24hr (osmotic) (Fortamet) pravastatin 80 mg tablet 80 mg PO HS 05/10/24 05/18/24 History pregabalin 100 mg capsule (Lyrica) 100 mg PO BID 05/10/24 05/18/24 History tirzepatide 10 mg/0.5 mL 10 mg subcut WEEKLY 05/10/24 05/18/24 History subcutaneous pen injector (Mounjaro) Allergies Allergy/AdvReac Type Severity Reaction Status Date / Time azithromycin Allergy Intermediate kidney Verified 05/18/24 07:44 issues Sulfa (Sulfonamide AdvReac Severe Swelling Verified 05/18/24 07:44 Antibiotics) Vital Signs Vital Signs - 24 hr 05/18/24 07:46 Temperature 97.5 F L Pulse Rate 60 Respiratory Rate 20 Blood Pressure 136/74 Pulse Oximetry 100 Oxygen Delivery Room Air Exam Const: General: comfortable and no acute distress HENMT: Face/Nose/Sinus: Normal nares present Eyes: General: appearance normal, both eyes and all related structures Neck: Neck: no JVD Resp: Auscultation: clear to auscultation bilaterally Cardio: Rate: regular rate Rhythm: regular rhythm GI: Inspection: non-distended GI Palp: Yes Soft to palpation Skin: General skin exam: normal color Neuro: Speech: normal speech Extrem: General: normal to inspection Psych: Mental Status: mental status grossly normal Assessment and Plan Assessment and plan (1) Colon polyp: Code(s): K63.5 - Polyp of colon Status: Acute Assessment and Plan: colonoscopy
[2024-05-18 08:38] VITALS: BP 98/54; PULSE 61; RESP 16; O2SAT 98
[2024-05-18 08:48] VITALS: BP 107/58; PULSE 60; RESP 16; O2SAT 100
[2024-05-18 08:58] VITALS: BP 129/66; PULSE 71; RESP 16; O2SAT 100
== END 2024-05-18 09:07 | disposition home or self-care (01) ==
PROVIDERS: PCP Internal Medicine; Visit Provider Internal Medicine Gastroenterology
PROC: 0DJD8ZZ Inspection of Lower Intestinal Tract, Via Natural or Artificial Opening Endoscopic (ICD-10-PCS; CPT 45378; principal; 2024-05-18 08:30)
DX: Z12.11 Encounter for screening for malignant neoplasm of colon (principal); D12.0 Benign neoplasm of cecum; Z79.82 Long term (current) use of aspirin; Z79.84 Long term (current) use of oral hypoglycemic drugs; Z79.85 Long-term (current) use of injectable non-insulin antidiabetic drugs; Z87.891 Personal history of nicotine dependence
CPT/HCPCS: 45385; 82948; 88305; J2003; J2704; J7120